=== PATIENT | male | born 1995 | race Caucasian/White ===

== ENCOUNTER 2017-07-31 17:26 | Emergency (ER) | payer BC ==
[2017-07-31 18:34] VITALS: BP 123/60
[2017-07-31] MEDS ORDERED: Tetracaine 0.5% OPTH.SOL 4 ML* 1 DROP BTL ONE (18:38)
[2017-07-31] MEDS ORDERED: Eye Irrigation Solution 30 ML BOTTLE ONE (18:38)
[2017-07-31] MEDS ORDERED: Fluorescein Sodium TOPICAL* 1 MG TEST ONE (18:38)
[2017-07-31] MEDS ORDERED: BSS OPTH.SOL* BTL OPHTHALMIC ONE (18:39)
[2017-07-31] MEDS ORDERED: Fluorescein Sodium TOPICAL* 1 MG TEST OPHTHALMIC ONE (18:39)
--- NOTE | 2017-07-31 18:39 | UC ---
Eye Complaint HPI - HPI Summary HPI Summary: left eye pain, hurts so bad he cannot drive, injected, no drainage, pupils small and non-reactive - History of Current Complaint Chief Complaint: UCEye Stated Complaint: LEFT EYE Time Seen by Provider: 07/31/17 18:38 Hx Obtained From: Patient Onset/Duration: Gradual Onset, Lasting Days - 2, Other - has had 2 similar episodes without diagnosis Timing: Constant Severity Initially: Moderate Severity Currently: Moderate Pain Intensity: 9 Pain Scale Used: 0-10 Numeric Aggravating Factor(s): Light Alleviating Factor(s): Darkness Associated Signs And Symptoms: Positive: Photophobia, Drainage (Clear) - Allergies/Home Medications Allergies/Adverse Reactions: Allergies Allergy/AdvReac Type Severity Reaction Status Date / Time No Known Allergies Allergy Verified 07/31/17 18:34 PMH/Surg Hx/FS Hx/Imm Hx Previously Healthy: Yes - Surgical History Surgical History: None - Family History Known Family History: Positive: None - Social History Occupation: Employed Full-time Lives: With Family Alcohol Use: Occasionally Substance Use Type: Marijuana Smoking Status (MU): Former Smoker Amount Used/How Often: 2 -3 perday Household Exposure Type: Cigarettes - Immunization History Most Recent Influenza Vaccination: no Review of Systems Constitutional: Negative Skin: Negative Eyes: Eye Redness - left, Photophobia - left ENT: Negative Respiratory: Negative Cardiovascular: Negative Gastrointestinal: Negative Genitourinary: Negative Motor: Negative Neurovascular: Negative Musculoskeletal: Negative Neurological: Negative Psychological: Negative Is Patient Immunocompromised?: No All Other Systems Reviewed And Are Negative: Yes Physical Exam Triage Information Reviewed: Yes Appearance: Well-Appearing, No Pain Distress, Well-Nourished Vital Signs: Initial Vital Signs Temp 98.6 F 07/31/17 18:27 Pulse 67 07/31/17 18:27 Resp 16 07/31/17 18:27 BP 123/60 07/31/17 18:27 Pulse Ox 97 07/31/17 18:27 Vital Signs Reviewed: Yes Eye Exam: Normal - right Eyes: Positive: Conjunctiva Inflamed - left ENT Exam: Normal Dental Exam: Normal Neck exam: Normal Neck: Positive: 1 Respiratory Exam: Normal Cardiovascular Exam: Normal Abdominal Exam: Normal Musculoskeletal Exam: Normal Neurological Exam: Normal Psychological Exam: Normal Skin Exam: Normal Re-Evaluation - Re-Evaluation First Eval Change: Unchanged - no uptake of dye with staining, pain relief with tetrcaine Eye Complaint Course/Dx - Course Course Of Treatment: no contact lens, cipro drops, ibuprofen for pain, follow with optho. in the morning - Differential Dx/Diagnosis Provider Diagnoses: os conjuctivitis, photophobia Discharge - Discharge Plan Condition: Stable Disposition: HOME Prescriptions: Ciprofloxacin 0.3% OPTH.SHRAVAN* [Cipro 0.3% Opth*] 2 drop LEFT EYE Q4H #1 btl Patient Education Materials: Ibuprofen (By mouth), How to Use Eye Drops (ED), Photophobia (ED) Forms: *Work Release Referrals: Slim Dukes MD [Medical Doctor] - 1 Day
[2017-07-31] MEDS ORDERED: Ibuprofen TAB* 600 MG PO ONE (18:59)
== END 2017-07-31 19:39 | disposition home or self-care (01) ==
LOC: UCCORT 17:26
DX: H10.9 Unspecified conjunctivitis (principal); F12.10 Cannabis abuse, uncomplicated
CPT/HCPCS: 99212; A9270-GY; G0463

== ENCOUNTER 2018-03-08 16:13 | Emergency (ER) | payer BC ==
[2018-03-08 16:38] VITALS: BP 122/78
--- NOTE | 2018-03-08 17:08 | UC ---
Eye Complaint HPI - HPI Summary HPI Summary: 22 y/o male presents to the urgent care c/o Right eyelid is swollen and itchy, watery. Crusty in the mornings - History of Current Complaint Chief Complaint: UCEye Stated Complaint: EYE INJURY Time Seen by Provider: 03/08/18 16:42 Hx Obtained From: Patient Onset/Duration: Gradual Onset, Lasting Days - 2 days, Still Present, Worse Since - today Timing: Days - 2 days Severity Initially: Mild Severity Currently: Moderate Pain Intensity: 4 Pain Scale Used: 0-10 Numeric Location of Injury: Eye Lid (upper) - RT upper eyelid swelling and painful Character: Foreign Body Sensation Aggravating Factor(s): Blinking, Other - touch Alleviating Factor(s): Nothing Associated Signs And Symptoms: Positive: Drainage (Purulent), Swelling - RT upper eyelid. Negative: Photophobia, Fever - Risk Factors Penetrating Injury Risk Factor: Negative Acute Glaucoma Risk Factors: Negative Optic Artery Occlusion Risk Factors: Negative - Allergies/Home Medications Allergies/Adverse Reactions: Allergies Allergy/AdvReac Type Severity Reaction Status Date / Time No Known Allergies Allergy Verified 03/08/18 16:39 PMH/Surg Hx/FS Hx/Imm Hx Previously Healthy: Yes - Pt denies pMHX - Surgical History Surgical History: None - Family History Known Family History: Positive: None - Pt denies FMHX - Social History Occupation: Employed Full-time Lives: With Family Alcohol Use: Weekly Substance Use Type: None Smoking Status (MU): Never Smoked Tobacco Amount Used/How Often: 2 -3 perday Household Exposure Type: Cigarettes - Immunization History Most Recent Influenza Vaccination: no Review of Systems Constitutional: Negative Skin: Negative Eyes: Drainage - yellowish, Eye Redness - RT eyelid swollen and painful ENT: Negative Respiratory: Negative Cardiovascular: Negative Gastrointestinal: Negative Genitourinary: Negative Motor: Negative Neurovascular: Negative Musculoskeletal: Negative Neurological: Negative Psychological: Negative Is Patient Immunocompromised?: No All Other Systems Reviewed And Are Negative: Yes Physical Exam - Summary Physical Exam Summary: Vital Signs Reviewed: Yes General: Well appearing, well nourished male in no apparent pain distress Eyes: Positive: B/L Conjunctiva clear- Visual acuity: WNL,Visual jalloh: full to confrontation.mild periorbital soft tissue swelling at the lateral side of RT upper eyelid with erythema and white small pustule tender to palpation. PERRLA, EOMI intact w/out limitation or complaint of pain. eyelashes clear. mild tearing and yellowish drainage observed. No ciliary flush. No chemosis, No photophobia. Normal fundoscopic exam; no proptosis, exophthalmos, nystagmus. ENT: Positive: Normal ENT inspection, Hearing grossly normal, Pharynx normal, Nasal congestion, Nasal drainage - clear, TMs normal - B/L external ear canal clear , TM's WNL. Negative: Tonsillar swelling, Tonsillar exudate Neck: Positive: Supple, Nontender, No Lymphadenopathy Respiratory: Positive: Chest nontender, Lungs clear, Normal breath sounds, No respiratory distress Cardiovascular: Positive: RRR, No Murmur, Pulses Normal, Brisk Capillary Refill Abdomen Description: Positive: Nontender, No Organomegaly, Soft. Negative: CVA Tenderness (R), CVA Tenderness (L) Bowel Sounds: Positive: Present Musculoskeletal: Positive: Strength Intact, ROM Intact, No Edema Neurological Exam: Normal Psychological Exam: Normal Skin Exam: Normal Triage Information Reviewed: Yes Vital Signs: Initial Vital Signs Temp 98.8 F 03/08/18 16:35 Pulse 78 03/08/18 16:35 Resp 16 03/08/18 16:35 BP 122/78 03/08/18 16:35 Pulse Ox 99 03/08/18 16:35 Eye Complaint Course/Dx - Differential Dx/Diagnosis Differential Diagnosis/HQI/PQRI: Conjunctivitis, Corneal Abrasion, Foreign Body , Periorbital Cellulitis, Orbital Cellulitis, Other - stye, Provider Diagnoses: 1- RT eye hordeolum Discharge - Discharge Plan Condition: Stable Disposition: HOME Prescriptions: Erythromycin OPTH OINT* [Erythromycin 0.5% OPTH OINT*] 1 applic RIGHT EYE TID # 1 ophth.oint Patient Education Materials: Stye (ED) Forms: *Work Release Referrals: [facility] [Outside] - 3 Days Slim Dukes MD [Medical Doctor] - If Needed Additional Instructions: 1-Please apply ophthalmic ointment in your RT eye as directed. Please apply warm compresses and massage the eye with gentle pressure 4-5 times for 10-15min throughout the day. Please remove your contact lenses as soon as you get home. do not wear them until symptoms resolve. Encourage hand washing. 2- If you do not improve or if symptoms worsen please f/u with your PCP or alpine guide Dr Dukes for further evaluation and treatment - Billing Disposition and Condition Condition: STABLE Disposition: Home
[2018-03-08] MEDS ORDERED: Erythromycin OPTH OINT* APPLIC OINT RIGHT EYE ONE (17:11)
[2018-03-08] MEDS ORDERED: Erythromycin TOPICAL GEL* 30 GM TUBE TOPICAL SCH (21:00)
== END 2018-03-08 17:24 | disposition home or self-care (01) ==
LOC: UCEAST 16:13
DX: H00.013 Hordeolum externum right eye, unspecified eyelid (principal); F17.210 Nicotine dependence, cigarettes, uncomplicated
CPT/HCPCS: 99212; A9270-GY; G0463

== ENCOUNTER 2019-01-04 13:05 | Emergency (ER) | payer BC ==
[2019-01-04 13:58] VITALS: BP 138/67
--- NOTE | 2019-01-04 14:11 | UC ---
UC General HPI - HPI Summary HPI Summary: PT IS C/O PAIN TOWARDS THE FRONT OF HIS R HEEL ON AND OFF FOR ABOUT 3 WEEKS. IT IS WORST WITH WALKING. NO HX OF INJURY. HE WONDERS IF IT IS A PLANTAR WART. - History of Current Complaint Chief Complaint: UCLowerExtremity Stated Complaint: RIGHT FOOT SKIN CONCERN Time Seen by Provider: 01/04/19 13:59 Hx Obtained From: Patient Pain Intensity: 5 Associated Signs & Symptoms: Negative: Edema, Fever - Allergy/Home Medications Allergies/Adverse Reactions: Allergies Allergy/AdvReac Type Severity Reaction Status Date / Time No Known Allergies Allergy Verified 01/04/19 13:52 PMH/Surg Hx/FS Hx/Imm Hx Previously Healthy: Yes - Surgical History Surgical History: None - Family History Known Family History: Positive: None - Pt denies FMHX - Social History Alcohol Use: Occasionally Substance Use Type: None Smoking Status (MU): Never Smoked Tobacco Amount Used/How Often: 2 -3 perday Household Exposure Type: Cigarettes - Immunization History Most Recent Influenza Vaccination: no Vaccination Up to Date: Yes Review of Systems All Other Systems Reviewed And Are Negative: No Constitutional: Negative: Fever Skin: Negative: Rash Musculoskeletal: Negative: Arthralgia, Decreased ROM, Edema Neurological: Negative: Weakness, Paresthesia, Numbness Physical Exam Triage Information Reviewed: Yes Appearance: Well-Appearing Vital Signs: Initial Vital Signs Temp 97.9 F 01/04/19 13:53 Pulse 77 01/04/19 13:53 Resp 15 01/04/19 13:53 BP 138/67 01/04/19 13:53 Pulse Ox 97 01/04/19 13:53 Vital Signs Reviewed: Yes Eyes: Positive: Conjunctiva Clear Respiratory: Positive: No respiratory distress Cardiovascular: Positive: RRR Musculoskeletal: Positive: Other: - ANKLE/FEET: NO SWELLING, RASH OR DISCOLORATION. VALGUS TO BOTH SIDES. MILD FLATTENING OF ARCHES. ANKLES NON TENDER. R FOOT IS TENDER OVER THE ANTERIOR HEEL. BOTH FEET HAVE FULL S/V/M FUNCTIONS. Neurological: Positive: Alert Psychological: Positive: Age Appropriate Behavior Skin Exam: Normal Skin: Negative: Rashes Course/Dx - Course Course Of Treatment: R FOOT: TAPER AROUND FOOT JUST ANTERIOR TO THE HEEL REDUCED PT DISCOMFORT. TOES HAVE FULL S/V/M POST TAPE. - Differential Dx - Multi-Symptom Differential Diagnoses: Other - PT HAS VALGUS TO BOTH ANKLES/FEET AND SLIGHT FLATTENING OR ARCHES PLUS R FOOT EXAM C/W PLANTAR FASCITIS. SHOE INSERTS SUGGESTED PLUS WILL TX WITH NSAID. - Diagnoses Provider Diagnosis: Plantar fasciitis of right foot Discharge - Sign-Out/Discharge Documenting (check all that apply): Patient Departure All imaging exams completed and their final reports reviewed: No Studies - Discharge Plan Condition: Stable Disposition: HOME Prescriptions: Naproxen [Naprosyn 500 mg tab] 500 mg PO BID 5 Days #10 tablet Patient Education Materials: Plantar Fasciitis (ED) Forms: *Work Release Referrals: Micky Pabon MD [Medical Doctor] - 7 Days Additional Instructions: CONSIDER AN ARCH SUPPORT - Billing Disposition and Condition Condition: STABLE Disposition: Home - Attestation Statements Provider Attestation: I was available for consult. This patient was seen by the THIERNO. The patient was not presented to, seen by, or examined by me. -Samantha
== END 2019-01-04 14:20 | disposition home or self-care (01) ==
LOC: UCCORT 13:05
DX: M72.2 Plantar fascial fibromatosis (principal); Z77.22 Contact with and (suspected) exposure to environmental tobacco smoke (acute) (chronic)
CPT/HCPCS: 99211; G0463

== ENCOUNTER 2023-07-29 09:37 | Inpatient (IN) ==
[2023-07-29 10:36] LABS: ABS Lymphocytes 1.4 10^3/uL (1.0-4.8); ABS Monocytes 0.5 10^3/uL (0.0-1.1); ABS Neutrophils 4.8 10^3/uL (1.5-7.6); ABS Nucleated RBC 0.01 10^3/ul; Eosinophil % 0.7 %; Hematocrit 40.1 % (38-53); Lymphocyte % 20.1 %; Mean Corpuscular Hgb Conc 34.8 g/dL (31-36); Mean Corpuscular Volume 94.6 fL (80-97); Nucleated Red Blood Cells % 0.1 %/100WBC (0.0-0.8); Platelet Count 305 10^3/uL (150-450); Red Blood Count 4.23 10^6/uL (4.06-5.63); Red Cell Distribution Width 12.9 % (12-17); White Blood Count 6.8 10^3/uL (3.6-10.2)
[2023-07-29 10:47] LABS: Urine Appearance Cloudy; Urine Bilirubin Negative (Negative); Urine Blood Negative (Negative); Urine Color Yellow; Urine Glucose Negative (Negative); Urine Ketones Negative (Negative); Urine Nitrite Negative (Negative); Urine Protein 1+(30 mg/dL) (Negative); Urine Specific Gravity 1.025 (1.002-1.030); Urine Urobilinogen Negative (Negative)
[2023-07-29 10:53] LABS: Urine Bacteria Absent (Absent); Urine Red Blood Cell Absent (Absent); Urine Squamous Epithelial Cell Present (Absent); Urine White Blood Cell Trace(0-5/hpf) (Absent)
[2023-07-29 10:55] LABS: ALT 39 U/L (7-52); AST 35 U/L (13-39); Albumin 4.6 g/dL (3.2-5.2); Albumin/Globulin Ratio 1.7 (1-3); Alkaline Phosphatase 83 U/L (35-149); Anion Gap 11 mmol/L (2-16); Blood Urea Nitrogen 12 mg/dL (6-24); CO2 Carbon Dioxide 25 mmol/L (22-32); Calcium 8.9 mg/dL (8.6-10.3); Chloride 108 mmol/L (101-111); Creatinine, Serum 0.97 mg/dL (0.67-1.17); Globulin 2.7 g/dL (2-4); Glucose 99 mg/dL (70-100); Potassium 4.1 mmol/L (3.5-5.0); Sodium 144 mmol/L (135-145); Total Bilirubin 0.2 mg/dL (0.2-1.0); Total Protein 7.3 g/dL (6.4-8.9); eGFR CKD-EPI 110.4 (>60)
[2023-07-29 11:25] LABS: Acetaminophen < 15 mcg/mL; Alcohol, S 151 mg/dL (<13); Salicylate < 2.50 mg/dL (<30)
[2023-07-29 11:32] LABS: Urine Benzodiazepine Screen None Detected (None Detect); Urine Cannabinoids Screen None Detected (None Detect); Urine Opiates Screen None Detected (None Detect)
[2023-07-29] MEDS ORDERED: Al Hydrox/Mg Hydrox/Simet LIQ 30 ML UDC PO PRN (13:19)
[2023-07-30] MEDS: Multivitamins/Minerals TAB PO SCH (09:59)
[2023-07-31] MEDS: Multivitamins/Minerals TAB PO SCH (09:22)
[2023-08-01] MEDS: Multivitamins/Minerals TAB PO SCH (08:48)
[2023-08-01] MEDS ORDERED: Naltrexone INJ 380 MG IM ONE (10:00)
[2023-08-01 11:46] VITALS: BP 160/75
[2023-08-31] MEDS ORDERED: Naltrexone INJ 380 MG IM SCH (10:00)
== END 2023-08-01 11:35 | disposition home or self-care (01) | DRG 775 ==
LOC: ED 09:37 → EDHOLD 13:19 → BSU 14:38
PROVIDERS: ADMIT Psychiatry & Neurology Psychiatry; ATTEND Psychiatry & Neurology Psychiatry